=== PATIENT | female | born 1950 | race Caucasian/White ===

== ENCOUNTER 2018-08-06 14:25 | Outpatient (CLI) | payer OTHER ==
[~2018-08-06 14:25] MED LIST: CATAFLAM50 MG PO; CLONAZEPAM0.5 MG; PROZAC20 MG; SKELAXIN800 MG PO
== END 2018-08-06 14:30 | disposition home or self-care (01) ==
LOC: LAB 14:25
DX: C91.10 Chronic lymphocytic leukemia of B-cell type not having achieved remission (principal); D50.8 Other iron deficiency anemias; D51.8 Other vitamin B12 deficiency anemias; I10 Essential (primary) hypertension

== ENCOUNTER 2018-09-29 06:21 | Day surgery (SDC) | payer OTHER | END 2018-09-29 13:35 | disposition home or self-care (01) | LOC: AMB-ENDOS 06:21 | DX: K64.8 Other hemorrhoids (principal) ==

== ENCOUNTER 2019-07-28 11:00 | Emergency (ER) | payer OTHER ==
[~2019-07-28] VITALS: Ht 185.4 cm; Wt 73.5 kg
[2019-07-28] MEDS ORDERED: SEROQUEL50 MG (11:12)
[2019-07-28] MEDS ORDERED: LIPITOR20 MG (11:12)
[2019-07-28] MEDS ORDERED: IBUPROFEN800 MG (11:13)
[2019-07-28] MEDS ORDERED: REMERON45 M1 (11:13)
== END 2019-07-28 21:49 | disposition home or self-care (01) ==
LOC: ER 11:00
DX: J06.9 Acute upper respiratory infection, unspecified (principal); J98.01 Acute bronchospasm

== ENCOUNTER 2019-09-11 10:03 | Emergency (ER) | payer OTHER ==
[~2019-09-11] VITALS: Ht 152.4 cm; Wt 74.4 kg
[~2019-09-11 10:03] MED LIST changes: +IBUPROFEN800 MG; +LIPITOR20 MG; +REMERON45 M1; +SEROQUEL50 MG
[2019-09-11] MEDS ORDERED: VITAMIN D3250 MCG PO (10:11)
[2019-09-11] MEDS ORDERED: ATORVASTATIN CA10 MG PO (10:11)
[2019-09-11] MEDS ORDERED: QUETIAPINE FUMA50 MG PO (10:11)
[2019-09-11] MEDS ORDERED: QUETIAPINE FUM100 MG PO (10:11)
[2019-09-11] MEDS ORDERED: LEVO-T88 MCG (10:12)
[2019-09-11] MEDS ORDERED: CLONAZEPAM1 MG PO (10:12)
[2019-09-11] MEDS ORDERED: FLUOXETINE HCL40 MG PO (10:12)
[2019-09-11] MEDS ORDERED: REMERON45 M1 PO (10:13)
== END 2019-09-11 13:32 | disposition home or self-care (01) ==
LOC: ER 10:03
DX: J40 Bronchitis, not specified as acute or chronic (principal)

== ENCOUNTER 2019-09-18 07:47 | Emergency (ER) | payer OTHER ==
[~2019-09-18] VITALS: Ht 154.9 cm; Wt 74.4 kg
[~2019-09-18 07:47] MED LIST changes: +ATORVASTATIN CA10 MG PO; +CLONAZEPAM1 MG PO; +FLUOXETINE HCL40 MG PO; +LEVO-T88 MCG; +QUETIAPINE FUM100 MG PO; +QUETIAPINE FUMA50 MG PO; +REMERON45 M1 PO; +VITAMIN D3250 MCG PO
== END 2019-09-18 09:28 | disposition home or self-care (01) ==
LOC: ER 07:47
DX: R00.2 Palpitations (principal); F41.8 Other specified anxiety disorders

== ENCOUNTER 2019-10-18 14:30 | Emergency (ER) | payer OTHER ==
[~2019-10-18] VITALS: Ht 167.6 cm; Wt 72.6 kg
[2019-10-18] MEDS ORDERED: LEVOTHYROXINE25 MCG (15:40)
[2019-10-18] MEDS ORDERED: PROZAC40 MG (15:41)
[2019-10-18] MEDS ORDERED: EFFEXOR XR150 MG (15:42)
[2019-10-18] MEDS ORDERED: SEROQUEL (15:42)
[2019-10-18] MEDS ORDERED: KLONOPIN (15:43)
[2019-10-18] MEDS ORDERED: LIPITOR20 MG (15:44)
== END 2019-10-18 17:45 | disposition home or self-care (01) ==
LOC: ER 14:30
DX: M54.5 Low back pain (principal)

== ENCOUNTER 2020-11-09 06:08 | Outpatient (CLI) | payer OTHER ==
[~2020-11-09 06:08] MED LIST changes: +EFFEXOR XR150 MG; +KLONOPIN; +LEVOTHYROXINE25 MCG; +PROZAC40 MG; +SEROQUEL
== END 2020-11-09 06:12 | disposition home or self-care (01) ==
LOC: LAB 06:08
PROVIDERS: ATTEND Internal Medicine Hematology & Oncology
DX: D50.8 Other iron deficiency anemias (principal); R79.9 Abnormal finding of blood chemistry, unspecified; I10 Essential (primary) hypertension; R74.02 Elevation of levels of lactic acid dehydrogenase [LDH]; K76.89 Other specified diseases of liver; D51.1 Vitamin B12 deficiency anemia due to selective vitamin B12 malabsorption with proteinuria; D51.0 Vitamin B12 deficiency anemia due to intrinsic factor deficiency; E03.8 Other specified hypothyroidism; E06.3 Autoimmune thyroiditis; R97.0 Elevated carcinoembryonic antigen [CEA]; R97.8 Other abnormal tumor markers; C91.10 Chronic lymphocytic leukemia of B-cell type not having achieved remission; R19.5 Other fecal abnormalities; F33.9 Major depressive disorder, recurrent, unspecified; J45.998 Other asthma

== ENCOUNTER 2021-02-09 07:01 | Outpatient (CLI) | payer OTHER | END 2021-02-09 07:02 | disposition home or self-care (01) | LOC: LAB 07:01 | PROVIDERS: ATTEND Internal Medicine Hematology & Oncology | DX: I10 Essential (primary) hypertension (principal); R74.02 Elevation of levels of lactic acid dehydrogenase [LDH]; K76.89 Other specified diseases of liver; D50.8 Other iron deficiency anemias; D51.8 Other vitamin B12 deficiency anemias; C91.10 Chronic lymphocytic leukemia of B-cell type not having achieved remission; R19.5 Other fecal abnormalities; E03.8 Other specified hypothyroidism; F33.9 Major depressive disorder, recurrent, unspecified; J45.998 Other asthma ==

== ENCOUNTER 2021-03-26 13:34 | Emergency (ER) | payer OTHER ==
[~2021-03-26] VITALS: Ht 154.9 cm; Wt 71.7 kg
[2021-03-26] MEDS ORDERED: CARAFATE1 GM PO (18:26)
[2021-03-26] MEDS ORDERED: PEPCID AC20 MG PO (18:26)
== END 2021-03-26 19:33 | disposition home or self-care (01) ==
LOC: ER 13:34
DX: R10.13 Epigastric pain (principal)

== ENCOUNTER 2021-08-23 13:42 | Emergency (ER) | payer OTHER ==
[~2021-08-23] VITALS: Ht 154.9 cm; Wt 66.7 kg
[~2021-08-23 13:42] MED LIST changes: +CARAFATE1 GM PO; +PEPCID AC20 MG PO
== END 2021-08-23 19:58 | disposition home or self-care (01) ==
LOC: ER 13:42
DX: H81.10 Benign paroxysmal vertigo, unspecified ear (principal); R42 Dizziness and giddiness; Z88.2 Allergy status to sulfonamides; Z88.8 Allergy status to other drugs, medicaments and biological substances; Z91.013 Allergy to seafood

== ENCOUNTER 2021-09-03 07:38 | Outpatient (CLI) | payer OTHER | END 2021-09-03 07:39 | disposition home or self-care (01) | LOC: LAB 07:38 | PROVIDERS: ATTEND Internal Medicine Hematology & Oncology | DX: D50.8 Other iron deficiency anemias (principal); R79.9 Abnormal finding of blood chemistry, unspecified; I10 Essential (primary) hypertension; R74.02 Elevation of levels of lactic acid dehydrogenase [LDH]; K76.89 Other specified diseases of liver; D63.8 Anemia in other chronic diseases classified elsewhere; E55.9 Vitamin D deficiency, unspecified; R97.0 Elevated carcinoembryonic antigen [CEA]; C91.10 Chronic lymphocytic leukemia of B-cell type not having achieved remission; R19.5 Other fecal abnormalities; E03.8 Other specified hypothyroidism; F33.9 Major depressive disorder, recurrent, unspecified; J45.998 Other asthma ==

== ENCOUNTER → 2021-09-17 13:41 | Outpatient (CLI) | payer OTHER | END | disposition home or self-care (01) | LOC: LAB 13:41 | PROVIDERS: ATTEND Radiology Diagnostic Radiology | DX: C91.10 Chronic lymphocytic leukemia of B-cell type not having achieved remission (principal) ==

== ENCOUNTER 2021-09-26 09:01 | Outpatient (CLI) | payer OTHER | END 2021-09-26 09:03 | disposition home or self-care (01) | LOC: TOM 09:01 | PROVIDERS: ATTEND Internal Medicine Hematology & Oncology | DX: C91.10 Chronic lymphocytic leukemia of B-cell type not having achieved remission (principal); R19.5 Other fecal abnormalities; E03.8 Other specified hypothyroidism; F33.9 Major depressive disorder, recurrent, unspecified; J45.998 Other asthma; R63.4 Abnormal weight loss; R51.9 Headache, unspecified | CPT/HCPCS: 70470; 71260; 74177; Q9965 ==

== ENCOUNTER 2023-01-06 19:54 | Inpatient (IN) | payer OTHER ==
[~2023-01-06] VITALS: Ht 154.9 cm; Wt 61.7 kg
[~2023-01-06 19:54] MED LIST changes: +AMOX-CLAV 875-1 EACH PO; +ANTIVERT25 M2 PO
[2023-01-07] MEDS ORDERED: RISPERIDONE0.5 MG (08:24)
[2023-01-07] MEDS ORDERED: MIRTAZAPINE15 MG (08:24)
[2023-01-07] MEDS ORDERED: CLONAZEPAM0.5 MG (08:24)
[2023-01-07] MEDS ORDERED: RESTORIL15 MG (08:24)
== END 2023-01-09 11:30 | disposition home or self-care (01) | DRG 293 ==
LOC: ER 19:54 → MEDJ 23:32
PROVIDERS: ADMIT Internal Medicine; ATTEND Internal Medicine
PROC: 4A12X4Z Monitoring of Cardiac Electrical Activity, External Approach (ICD-10-PCS; principal; 2023-01-07)
PROC: B24BZZZ Ultrasonography of Heart with Aorta (ICD-10-PCS; 2023-01-07)
DX: I50.9 Heart failure, unspecified (principal); E03.9 Hypothyroidism, unspecified

== ENCOUNTER → 2023-03-15 | Emergency (ER) | payer OTHER ==
[~2023-03-15] MED LIST changes: +MIRTAZAPINE15 MG; +RESTORIL15 MG; +RISPERIDONE0.5 MG
== END | disposition left against medical advice (07) ==
LOC: ER 12:15
DX: Z53.21 Procedure and treatment not carried out due to patient leaving prior to being seen by health care provider (principal)

== ENCOUNTER → 2023-06-06 | Emergency (ER) | payer OTHER ==
[~2023-06-06] VITALS: Ht 165.1 cm; Wt 73.0 kg
[~2023-06-06] MED LIST changes: +LASIX40 MG
== END | disposition left against medical advice (07) ==
LOC: ER 09:07
DX: Z53.21 Procedure and treatment not carried out due to patient leaving prior to being seen by health care provider (principal)

== ENCOUNTER 2024-05-02 09:02 | Emergency (ER) | payer OTHER ==
[~2024-05-02] VITALS: Ht 154.9 cm; Wt 74.4 kg
[2024-05-02] MEDS ORDERED: ONDANSETRON HCL 2 MG/ML VIAL IV ONE (09:45)
[2024-05-02] MEDS ORDERED: 0.9 % SODIUM CHLORIDE 1,000 ML IV ONE (09:45)
[2024-05-02 10:36] LABS: HEMATOCRIT 39.1 % (36.0-45.00); HEMOGLOBIN 12.6 g/dL (12.0-15.00); MEAN CORPUSCULAR HEMOGLOBIN 26.2 pg (27.00-32.0); MEAN CORPUSCULAR HGB CONC 32.3 g/dl (32.0-36.0); PLATELET COUNT 147 K/uL (150-450); RED BLOOD COUNT 4.82 M/uL (4.00-6.00)
[2024-05-02 11:01] LABS: ALBUMIN 3.8 gm/dL (3.4-5.0); BILIRUBIN TOTAL 0.83 mg/dL (0.3-1.2); CALCIUM 9.7 mg/dL (8.5-10.1); CREATININE SERUM 1.02 mg/dL (0.55-1.02); GFR 52.97; GLOBULINA 3.1 G/DL (2.4-3.5); POTASSIUM 4.24 mEq/L (3.5-5.1); TOTAL PROTEIN 6.9 gm/dL (6.4-8.2)
[2024-05-02 11:04] LABS: URINE APPEARANCE Clear; URINE BILIRRUBIN Negative (NEGATIVE); URINE BLOOD Negative; URINE COLOR Yellow; URINE GLUCOSE Negative (NEGATIVE); URINE KETONE Trace (NEGATIVE); URINE LEUKOCYTE Trace; URINE NITRATE Negative; URINE PROTEIN Negative (NEGATIVE)
[2024-05-02 11:09] LABS: URINE BACTERIA 1218.9 uL (0.0-1933); URINE EPITHELIAL CELLS 26.7 uL (0.0-38.8); URINE RBC 2.5 uL (0.0-20.8); URINE WBC 46.3 uL (0.0-23.2)
[2024-05-02 11:11] LABS: URINE CAST 0.14 uL (0.0-1.40)
[2024-05-02 11:14] LABS: RED CELL DISTRIBUTION WIDTH 18.9 % (11.5-14.5)
== END 2024-05-02 12:50 | disposition home or self-care (01) ==
LOC: ER 09:04
PROVIDERS: General Practice
DX: K29.70 Gastritis, unspecified, without bleeding (principal); R11.10 Vomiting, unspecified; Z88.2 Allergy status to sulfonamides; Z91.013 Allergy to seafood; Z91.041 Radiographic dye allergy status
CPT/HCPCS: 36415; 74176; 96365; 96366; 99284; J2405; J7030